=== PATIENT | male | born 1935 | race Caucasian/White ===

== ENCOUNTER → 2019-06-27 11:49 | Outpatient (CLI) | payer MEDICARE, BC | END | disposition home or self-care (01) | LOC: D.CT 11:49 | PROVIDERS: ATTEND Internal Medicine Interventional Cardiology | DX: I70.213 Atherosclerosis of native arteries of extremities with intermittent claudication, bilateral legs (principal) ==

== ENCOUNTER 2021-03-06 14:20 | Inpatient (IN) | payer MEDICARE, BC ==
[2021-03-06] VITALS (33 sets, daily range): BP systolic 76–151; BP diastolic 35–101; Ht 175.3 cm; Wt 105.1 kg
[~2021-03-06] VITALS: Ht 175.3 cm; Wt 105.1 kg
--- NOTE | ~2021-03-06 | CN ---
PATIENT NAME:MAILE GOOD MEDICAL RECORD: [id number] : 39 LOCATION:[facility].2306 ADMIT DATE: 03/06/21 ACCOUNT: [id number] CONSULTING PHYSICIAN: RIKY ARREDONDO MD REFERRING PHYSICIAN: MAGNUS SMALLWOOD MD DATE OF CONSULTATION: 03/06/2021 HISTORY OF PRESENT ILLNESS: The patient is an 85-year-old male with history of hypertension, who presented to the outside Emergency Room with complaints of neck and head discomfort. The patient was noted on ECG via ER physician with possible STEMI. The patient received thrombolytic therapy. The patient transferred to [facility] for further evaluation and management. The patient currently has no chest pain and hemodynamically stable at this time. PAST MEDICAL HISTORY: 1. History of neck/head discomfort -- probable STEMI (via outside Emergency Room) -- status post thrombolytics. 2. Hypertension. 3. Mild obesity. 4. Ventral hernia. PHYSICAL EXAMINATION: GENERAL: Pleasant elderly black male, in no apparent distress. VITAL SIGNS: Blood pressure is 100/70, his pulse is 60s (regular). HEENT: Sclerae are clear. Conjunctivae pink. NECK: Supple. No appreciated JVD. HEART: Regular rhythm and rate. II/ systolic murmur. LUNGS: Basal rales bilaterally/rhonchi. ABDOMEN: Obese with a ventral hernia. EXTREMITIES: Negative for edema. NEUROLOGIC: Nonfocal. LABORATORY DATA: His EKG (current) sinus bradycardia at 57 beats per minute; septal infarct pattern, age undetermined; no acute ST-T wave changes; left ventricular hypertrophy with repolarization abnormality. Hemoglobin and hematocrit 14.4 and 40.5, white blood cell count 8.8, platelet count is 200. Remaining labs pending. Sodium 133, potassium 3.3, BUN of 19, creatinine of 1.8, and troponin 0.028 (outside facility). ASSESSMENT AND PLAN: 1. Neck and head discomfort -- abnormal ECG via outside Emergency Room physician -- status post thrombolytic. 2. Abnormal ECG -- sinus bradycardia with septal infarct pattern; left ventricular hypertrophy with repolarization abnormality. 3. Hypertension. 4. Ventral hernia. 5. Mild to moderate obesity. PLAN: Continue with current medical management at this time. The patient will be scheduled for echocardiogram to assess LV function and valvular status. The patient also will be reevaluated and possible scheduled for left heart CONSULT REPORT [id number] MAILE GOOD catheterization to evaluate coronary anatomy and LV function. Further recommendations are clinically indicated. Thank you for allowing me to participate in the care of this patient. TRANSINT:[id number] Voice Confirmation ID: [id number] DOCUMENT ID: [id number] RIKY ARREDONDO MD CC: [id number] DICTATION DATE: 03/06/21 1516 BUG TRIMMER: 03/06/212028 ADM IN [facility] [address] [id number]
[2021-03-06 15:08] LABS: BASOPHILS 0.2 % (0-2); EOSINOPHILS 1.8 % (0-7); HEMATOCRIT 40.5 % (42.0-54.0); HEMOGLOBIN 14.4 g/dL (13.5-17.5); IMMATURE GRANULOCYTES 0.7 % (0-5); LYMPHOCYTE ABS# 0.91 10x3/uL (1.32-3.57); LYMPHOCYTES 10.4 % (15-50); MCH 29.3 pg (26.0-34.0); MCHC 35.6 g/dL (31.0-37.0); MCV 82.3 fL (80.0-100.0); NEUTROPHILS 78.9 % (40-80); PLATELET COUNT 200 10x3/uL (130-400); RBC 4.92 10x6/uL (4.20-6.10); RDW 15.3 % (11.5-14.5); WBC 8.8 10x3/uL (4.8-10.8)
[2021-03-06 15:18] LABS: CALC OSMOLALITY 268 mosm/kg (275-300); CALCIUM 9.2 mg/dL (8.5-10.1); CARBON DIOXIDE 28.6 mmol/L (21.0-32.0); CHLORIDE - SERUM 97 mmol/L (98-107); CREATININE - SERUM 1.8 mg/dL (0.6-1.3); GLUCOSE 122 mg/dL (74-106); SODIUM 133 mmol/L (136-145); UREA NITROGEN 19 mg/dL (7-18); eGFR NON AFRICAN AMERICAN 38 mL/min (90-120)
[2021-03-06 15:20] LABS: APTT 32.1 SECONDS (22.8-39.4); INR 1.11 (0.85-1.17); PROTIME 13.2 SECONDS (11.6-15.0)
[2021-03-06 15:33] LABS: ALBUMIN 3.7 g/dL (3.4-5.0); ALKALINE PHOSPHATASE 104 U/L (30-120); ALT (SGPT) 27 U/L (10-68); BILIRUBIN - TOTAL 1.03 mg/dL (0.2-1.3); CKMB 16.4 U/L (0.0-3.6); CREATINE KINASE 323 UL (21-232); MAGNESIUM - SERUM 1.8 mg/dL (1.8-2.4); TROPONIN-I 0.022 ng/mL (0.000-0.060)
[2021-03-06] MEDS ORDERED: K-TAB10 MEQ PO (16:22)
[2021-03-06] MEDS ORDERED: LISINOPRIL-HCT1 EAC7 PO (16:23)
[2021-03-06] MEDS ORDERED: CARDURA8 MG PO (16:23)
[2021-03-06] MEDS ORDERED: TOPROL XL100 MG PO (16:23)
[2021-03-06] MEDS ORDERED: CYMBALTA30 MG PO (16:24)
[2021-03-06] MEDS ORDERED: LIPITOR20 MG PO (16:24)
--- NOTE | 2021-03-06 17:01 | NUR ---
SPOKE WITH ANT GREGORY, AND CLARIFIED THAT HE HAS NKA.
--- NOTE | 2021-03-06 17:12 | NUR ---
CARDIOLOGY PAGED REGARDING HEPARIN INFUSION GTT. CLARIFIED WHETHER OR NOT TO USE HEPARIN GTT PROTOCOL OR KEEP AT CURRENT RATE. DR. CHASE ORDERS TO D/C IT.
[2021-03-06 20:52] LABS: HEMATOCRIT 36.7 % (42.0-54.0); HEMOGLOBIN 13.2 g/dL (13.5-17.5)
[2021-03-06 21:15] LABS: CREATINE KINASE 310 UL (21-232); TROPONIN-I 0.017 ng/mL (0.000-0.060)
[2021-03-07] VITALS (31 sets, daily range): BP systolic 96–177; BP diastolic 39–145
[2021-03-07 03:16] LABS: BASOPHILS 0.2 % (0-2); HEMATOCRIT 34.3 % (42.0-54.0); HEMOGLOBIN 12.3 g/dL (13.5-17.5); IMMATURE GRANULOCYTES 0.3 % (0-5); LYMPHOCYTE ABS# 1.07 10x3/uL (1.32-3.57); LYMPHOCYTES 18.1 % (15-50); MCH 29.4 pg (26.0-34.0); MCHC 35.9 g/dL (31.0-37.0); MCV 82.1 fL (80.0-100.0); MEAN PLATELET VOLUME 9.3 fL (7.4-10.4); MONOCYTES 9.1 % (2-11); NEUTROPHIL ABS# 4.09 10x3/uL (1.78-5.38); NEUTROPHILS 69.3 % (40-80); RBC 4.18 10x6/uL (4.20-6.10); RDW 15.5 % (11.5-14.5)
[2021-03-07 03:32] LABS: PLATELET COUNT 141 10x3/uL (130-400); WBC 5.9 10x3/uL (4.8-10.8)
[2021-03-07 03:39] LABS: ALBUMIN 3.3 g/dL (3.4-5.0); ALKALINE PHOSPHATASE 93 U/L (30-120); ALT (SGPT) 23 U/L (10-68); BILIRUBIN - TOTAL 0.86 mg/dL (0.2-1.3); CALC OSMOLALITY 272 mosm/kg (275-300); CALCIUM 8.5 mg/dL (8.5-10.1); CARBON DIOXIDE 27.1 mmol/L (21.0-32.0); CHLORIDE - SERUM 100 mmol/L (98-107); CKMB 15.2 U/L (0.0-3.6); CREATINE KINASE 338 UL (21-232); CREATININE - SERUM 1.6 mg/dL (0.6-1.3); GLUCOSE 99 mg/dL (74-106); POTASSIUM - SERUM 3.7 mmol/L (3.5-5.1); PROTEIN - SERUM 6.1 g/dL (6.4-8.2); SODIUM 135 mmol/L (136-145); TROPONIN-I < 0.017 ng/mL (0.000-0.060); UREA NITROGEN 20 mg/dL (7-18); eGFR NON AFRICAN AMERICAN 44 mL/min (90-120)
[2021-03-07 08:32] LABS: CKMB 14.9 U/L (0.0-3.6); CREATINE KINASE 322 UL (21-232); TROPONIN-I < 0.017 ng/mL (0.000-0.060)
--- NOTE | 2021-03-07 09:55 | NUR ---
PT REPORTS PAIN SHOOTING DOWN RLE. PAIN RATED A 6/10 AT PRESENT TIME.
--- NOTE | 2021-03-07 12:33 | NUR ---
URINE COLLECTED VIA CLEAN CATCH AND SENT TO LAB
[2021-03-07 13:09] LABS: BILIRUBIN NEGATIVE (NEGATIVE); KETONE NEGATIVE (NEGATIVE); NITRITE NEGATIVE (NEGATIVE); UROBILINOGEN NORMAL mg/dL (< 2)
[2021-03-07 13:11] LABS: WHITE CELLS - URINE 2 HPF (0-1)
[2021-03-07 13:12] LABS: BACTERIA MODERATE HPF (NONE SEEN)
--- NOTE | 2021-03-07 17:41 | NUR ---
PT TRANSPORTED TO 2118 VIA W/C. VS STABLE. PT DENIES ANY COMPLAINTS OR NEEDS AT TIME OF D/C. REPORT CALLED TO KENNEY POLK
[2021-03-08 02:11] VITALS: BP 102/77
--- NOTE | 2021-03-08 04:12 | NUR ---
PT RESTLESS WITH INCREASED CONFUSION DURING THE NIGHT, SR IN THE 60-80S. BED ALARM ON FOR FALL RISK. PT IN HALLWAY A FEW TIMES UNSURE OF SITUATION. PT PULLED OF TELEMETRY MULTIPLE TIMES, FORGETFUL OF WHAT IT IS FOR. DENIES CHEST PAIN/DISCOMFORT. PT UNSURE OF WHICH HOSPITAL HE IS IN OR WHY. NO DISTRESS WHILE IN BED. DYSPNEA ON EXERTION. CL IN REACH AND USED X2. EASY TO REDIRECT BUT RESTLESS. WILL CTM.
[2021-03-08 05:25] VITALS: BP 123/50
--- NOTE | 2021-03-08 07:56 | NUR ---
PT RECEIVED AWAKE AND ALERT, GETTING OUT OF BED WITH BED ALARM GOING OFF. ASSISTED BACK IN BED AND REORIENTED. CONFUSED TO PLACE, PERSON, TIME. KNOWS SITUATION. TELEMETRY IN USE. OFFERED TO CALL FAMILY FOR UPDATE BUT DOES NOT WANT HIS DAUGHTER (FARE REGISTER REPAIRER) CALLED RIGHT NOW CAUSE SHE WILL "GIVE HIM A HARD TIME".
[2021-03-08 08:42] VITALS: BP 144/66
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
[2021-03-08 09:06] LABS: BASOPHILS 0.2 % (0-2); EOSINOPHILS 1.2 % (0-7); HEMATOCRIT 34.7 % (42.0-54.0); HEMOGLOBIN 12.5 g/dL (13.5-17.5); IMMATURE GRANULOCYTES 0.2 % (0-5); LYMPHOCYTE ABS# 0.74 10x3/uL (1.32-3.57); LYMPHOCYTES 11.5 % (15-50); MCH 29.4 pg (26.0-34.0); MCV 81.6 fL (80.0-100.0); MEAN PLATELET VOLUME 9.4 fL (7.4-10.4); MONOCYTES 7.3 % (2-11); NEUTROPHIL ABS# 5.14 10x3/uL (1.78-5.38); NEUTROPHILS 79.6 % (40-80); PLATELET COUNT 135 10x3/uL (130-400); RBC 4.25 10x6/uL (4.20-6.10); RDW 15.5 % (11.5-14.5); WBC 6.5 10x3/uL (4.8-10.8)
[2021-03-08 09:23] LABS: ALBUMIN 3.4 g/dL (3.4-5.0); ANION GAP 13.5 mmol/L (8-16); BILIRUBIN - TOTAL 1.03 mg/dL (0.2-1.3); CALCIUM 8.7 mg/dL (8.5-10.1); CARBON DIOXIDE 25.3 mmol/L (21.0-32.0); CREATININE - SERUM 1.2 mg/dL (0.6-1.3); MAGNESIUM - SERUM 1.5 mg/dL (1.8-2.4); POTASSIUM - SERUM 3.8 mmol/L (3.5-5.1); PROTEIN - SERUM 6.5 g/dL (6.4-8.2)
--- NOTE | 2021-03-08 09:41 | NUR ---
PT ASKING ABOUT HOME MEDS. WILL SEE ABOUT RESTARTING WHEN ROUNDS MADE.
[2021-03-08 12:58] VITALS: BP 140/90
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
[2021-03-08 16:00] VITALS: BP 147/86
--- NOTE | 2021-03-08 16:33 | MORECARE ---
CASE MANAGEMENT DISCHARGE SUMMARY PATIENT: MAILE GOOD UNIT: [id number] ADM DATE: 03/06/21 AGE: 85 : 37 SEX: M ROOM/BED: D.2119 AUTHOR: CANDY KHAN PHYSICIAN: REFERRING PHYSICIAN: MAGNUS SMALLWOOD MD DATE OF SERVICE: 03/08/21 Case Management Discharge Planning Summary DCP REVIEW SUMMARY ANTICIPATED D/C DATE: EXPECTED LOS : CASE STATUS: DCP Initiated INITIAL REVIEW: 03/08/2021 INITIAL REVIEWER: Anais Menon FINAL DISCHARGE DISPOSITION: : FINAL REVIEWER: FINAL REVIEW DATE: DCP Focus Questions & Answers DCP Evaluation QUESTION: ANSWER Family / Caregiver's ability to cope with chronic illness: : a. Adequate (ability to meet patient's medical needs, ensures patient attends medical appts.) Patient gives permission to discuss discharge plans with: (name, relationship and number) : Meronspencer Collazo ROMAINE - [phone] Paula sims - [phone] Patient's ability to cope with chronic illness : d. No chronic illness Patient's current cognitive status: : Oriented to person Patient and/or caregiver agree upon recommended discharge plan? : Yes Physical Status: : Mobility impaired Physical Status: : Partial care dependence Family / Caregiver's ability to cope with chronic illness: : a. Adequate (ability to meet patient's medical needs, ensures patient attends medical appts.) Functional screen assessment: : Unable to manage ADLs without immediate ongoing assistance Does the patient have the ability to pay for or attain post discharge needs / services? : Yes Partial Dependence, assistance required for: : Ambulation / Mobility Living Arrangements: : Home with others Is there a likelihood that the patient will require additional services to return to the preadmission environment? : No Equipment needed for post hospitalization: : Walker - Rollator Living arrangements comments: : Paula sims Baseline cognitive status: : Alert Baseline cognitive status: : Intermittently confused / memory changes Patient with capacity for self-care or can be cared for in same environment as prior to hospitalization? : No Results of this evaluation have been discussed with: : Other Results of this evaluation have been discussed with: : Patient Preadmission facility can/cannot provide post hospital level of care needs: : Cannot - at higher level of care than preadmission Physical environment modification needed / anticipated for discharge: : No Medication Management: : Patient states the need for assistance with medication administration Physical environment referral comments (if applicable): : Referred to Jason Villanueva [facility] Pharmacy name(s): : [facility] in [place] Planned post hospital services available for patient? : Yes Does Patient have transportation to get home and to follow-up medical appointments when discharged from the hospital? : Yes Planned post hospital services covered by insurance plan? : Yes Would patient like to participate in any Care Coordination programs (if applicable): : Not applicable Does the patient have electricity at home? : Yes Does the patient have running water in their house? : Yes Equipment in use: : None Mental health screen: : No mental health history Psychosocial status: : Adult with physical limitations Resources / Services in place: : None DCP Re-evaluation QUESTION: ANSWER Would patient like to participate in any Care Coordination programs (if applicable): : Not applicable PATIENT: MAILE GOOD ENCOUNTER: [id number] MEDICAL RECORD#: [id number] ADMISSION DATE: 03/06/2021 DISCHARGE DATE: ATTENDING MD: MAGNUS WRIGHT : AGE: 85 MARITAL STATUS: M DC PLAN ID: [id number] FACILITY: [facility] PRINTED ON: 03/08/21 16:33 CT All edits/amendments must be made on the electronic document DICTATION DATE: 03/08/211632 JANITOR AND CLEANER: PAOLA 03/08/211632 RPT#: [id number] DC DATE: STATUS: ADM IN [facility] [address] [place] [address] END OF REPORT
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
[2021-03-08 19:34] VITALS: BP 162/86
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
--- NOTE | 2021-03-09 00:28 | NUR ---
PT CURRENTLY REFUSING TELEMETRY. UNABLE TO PLACE BACK ON PT WITHOUT HIM BECOMING AGGITATED AND IRRATE.
--- NOTE | 2021-03-09 07:00 | NUR ---
RECEIVED REPORT. ASSUMED CARE OF PATIENT. CALL LIGHT WITHIN REACH. PATIENT WITH ONE ON ONE SITTER. PATIENT SLOW TO RESPOND TO QUESTIONS, HESITANT TO SPEAK/SHORT WITH ANSWERS. WHITE BOARD UPDATED, BEDSIDE SHIFT REPORT COMPELTE. NO DISTRESS.
[2021-03-09 07:30] VITALS: BP 167/78
--- NOTE | 2021-03-09 07:54 | NUR ---
PATIENT REFUSES TO KEEP TELEMETRY ON AT THIS TIME. REFUSED TELEMETRY LAST SHIFT WELL.
[2021-03-09 11:11] LABS: BASOPHILS 0.2 % (0-2); EOSINOPHILS 2.2 % (0-7); HEMATOCRIT 31.4 % (42.0-54.0); HEMOGLOBIN 11.2 g/dL (13.5-17.5); IMMATURE GRANULOCYTES 0.2 % (0-5); LYMPHOCYTE ABS# 0.72 10x3/uL (1.32-3.57); LYMPHOCYTES 11.9 % (15-50); MCHC 35.7 g/dL (31.0-37.0); MCV 81.3 fL (80.0-100.0); MEAN PLATELET VOLUME 9.3 fL (7.4-10.4); MONOCYTES 8.6 % (2-11); NEUTROPHIL ABS# 4.64 10x3/uL (1.78-5.38); NEUTROPHILS 76.9 % (40-80); PLATELET COUNT 134 10x3/uL (130-400); RBC 3.86 10x6/uL (4.20-6.10); RDW 15.3 % (11.5-14.5)
[2021-03-09 11:25] LABS: ALBUMIN 3.2 g/dL (3.4-5.0); ALKALINE PHOSPHATASE 83 U/L (30-120); ALT (SGPT) 27 U/L (10-68); BILIRUBIN - TOTAL 1.18 mg/dL (0.2-1.3); CALC OSMOLALITY 265 mosm/kg (275-300); CALCIUM 8.7 mg/dL (8.5-10.1); CARBON DIOXIDE 27.4 mmol/L (21.0-32.0); CHLORIDE - SERUM 96 mmol/L (98-107); GLUCOSE 114 mg/dL (74-106); MAGNESIUM - SERUM 1.5 mg/dL (1.8-2.4); POTASSIUM - SERUM 3.6 mmol/L (3.5-5.1); PROTEIN - SERUM 5.9 g/dL (6.4-8.2); SODIUM 131 mmol/L (136-145); UREA NITROGEN 17 mg/dL (7-18); eGFR NON AFRICAN AMERICAN 76 mL/min (90-120)
[2021-03-09 11:30] VITALS: BP 123/60
[2021-03-09] MEDS ORDERED: LISINOPRIL10 MG PO (13:16)
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
--- NOTE | 2021-03-09 15:21 | NUR ---
[facility] CALLED AND TRANSPORTATION ARRANGE. ETA ONE HOUR TO PICK PATIENT UP FROM ROOM 2119 AND TRANSPORT TO [place].
--- NOTE | 2021-03-09 15:35 | NUR ---
18 GAUGE IV REMOVED FROM LEFT FOREARM. CATHETER TIP INTACT. NO BLEEDING FROM SITE. 2X2 GAUZE APPLIED AND SECURED WITH BANDAID. NO DISTRESS. CALL LIGHT WITHIN REACH.
--- NOTE | 2021-03-09 15:44 | NUR ---
CALLED AND GAVE REPORT TO SHAYAN [phone] AT THE [facility]. CALLED BRANDON AND INFORMED HER THAT WE ARE DISCHARGING PATIENT AND HE WILL BE TRANSPORTED BY EMS. TRIED TO CALL PATIENTS ANT [facility], [facility]AR WAS BUSY. AWAITING [facility] TO TRANSPORT PATIENT.
--- NOTE | 2021-03-09 16:25 | NUR ---
1604 PATIENT LEFT UNIT WITH ALL PERSONAL BELONGINGS. PATIENT DISCHARGED IN STABLE CONDITION TO THE [facility].
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
== END 2021-03-09 16:05 | DRG 314 ==
LOC: D.ER 14:20 → D.M2 15:04 → D.ICU 15:04 → D.M2 03-07 18:06
PROVIDERS: Family Medicine; ADMIT Family Medicine; ATTEND Family Medicine
DX: I95.9 Hypotension, unspecified (principal); R57.0 Cardiogenic shock; N17.9 Acute kidney failure, unspecified; E87.1 Hypo-osmolality and hyponatremia; G93.40 Encephalopathy, unspecified; R07.9 Chest pain, unspecified; R31.9 Hematuria, unspecified; E87.6 Hypokalemia; I12.9 Hypertensive chronic kidney disease with stage 1 through stage 4 chronic kidney disease, or unspecified chronic kidney disease; N18.9 Chronic kidney disease, unspecified